=== PATIENT | female | born 1985 | race African-American/Black ===

== ENCOUNTER 2019-05-06 16:53 | Emergency (ER) | payer MEDICAID, OTHER ==
[2019-05-06] MEDS ORDERED: predniSONE 20 MG TAB ONE (17:51)
== END 2019-05-06 17:55 | disposition home or self-care (01) ==
LOC: MADERS 16:53
DX: J10.1 Influenza due to other identified influenza virus with other respiratory manifestations (principal)
CPT/HCPCS: 87081; 87430; 87804; 99283; J7512